=== PATIENT | female | born 1930 | race Two or more races ===

== ENCOUNTER 2018-02-13 18:31 | Inpatient (IN) | payer MEDICARE, OTHER ==
[~2018-02-13] VITALS: Ht 152.4 cm; Wt 60.1 kg
[2018-02-13] MEDS ORDERED: ONDANSETRON HCL 4 MG/2 ML VIAL ONE (19:13)
[2018-02-13] MEDS ORDERED: HYDROmorphone HCL 2 MG/ML VL ONE (19:13)
[2018-02-13] MEDS ORDERED: HYDROmorphone HCL 2 MG/ML VL IV ONE (19:15)
[2018-02-13] MEDS ORDERED: ONDANSETRON HCL 4 MG/2 ML VIAL IV ONE (19:15)
[2018-02-13] MEDS ORDERED: SODIUM CHLORIDE 0.9% 500 ML IV ONE (19:30)
[2018-02-13 19:59] LABS: Basophils # (auto) 0 uL; Basophils % (auto) 0.5 % (0.0-2.0); Eosinophils # (auto) 0.1 uL; Hematocrit 36.3 % (36.0-46.0); Hemoglobin 12.1 g/dL (12.2-16.2); Lymphocytes # (auto) 0.5 uL; Lymphocytes % (auto) 9.2 % (10.0-50.0); Mean Corpuscular Hemoglobin 30.1 pg (28.0-32.0); Mean Corpuscular Hgb Conc. 33.4 g/dL (32.0-36.0); Mean Corpuscular Volume 90.3 fL (80.0-100.0); Monocytes # (auto) 0.3 uL; Monocytes % (auto) 6.1 % (0.0-12.0); Neutrophils # (auto) 4.8 uL; Neutrophils % (auto) 83.2 % (37.0-80.0); Platelet Count (auto) 210 10^3/uL (140-450); Red Blood Cells 4.02 10^6/uL (4.0-5.20); Red Cell Distribution Width 14.8 % (11.8-14.3); White Blood Cell 5.7 10^3/uL (4.4-10.8)
[2018-02-13 20:17] LABS: Alanine Aminotransferase 18 U/L (13-56); Albumin 3.3 g/dL (3.4-5.0); Anion Gap 7 (5-15); Aspartate Aminotransferase 21 U/L (15-37); BUN/Creatinine Ratio 23.3; Blood Urea Nitrogen 24 mg/dL (7-18); Calcium 8.3 mg/dL (8.5-10.1); Carbon Dioxide 24 mmol/L (21-32); Chloride 111 mmol/L (98-107); GFR African American 65 mL/min; GFR Non-African American 54 mL/min; Glucose 137 mg/dL (74-106); Magnesium 2.6 mg/dL (1.6-2.6); Potassium 4.4 mmol/L (3.5-5.1); Sodium 142 mmol/L (136-145)
[2018-02-13 20:22] LABS: Alkaline Phosphatase 69 U/L (45-117); Bilirubin, Total 0.6 mg/dL (0.2-1.0); Total Protein 6.6 g/dL (6.4-8.2)
[2018-02-13 21:20] LABS: Urine Bacteria NONE SEEN /hpf (None Seen); Urine Blood Negative /uL (Negative); Urine Mucus FEW (None Seen); Urine Specific Gravity 1.024 (1.001-1.035); Urine WBC 1 /hpf (0 - 5)
[2018-02-13] MEDS ORDERED: TEMAZEPAM 15 MG CAP PO PRN (22:45)
[2018-02-13] MEDS ORDERED: ACETAMINOPHEN 500 MG TAB PO PRN (22:45)
[2018-02-13] MEDS ORDERED: MEPERIDINE HCL (25 MG/ML) 1ML VIAL IV ONE (22:45)
[2018-02-13] MEDS ORDERED: DOCUSATE SOD 100 MG CAP PO PRN (22:45)
[2018-02-14] MEDS ORDERED: SODIUM CHLORIDE 0.9% 1,000 ML IV SCH (03:00)
[2018-02-14 04:00] VITALS: BP 156/77
[2018-02-14 04:33] VITALS: BP 156/77
[2018-02-14 06:14] LABS: Basophils # (auto) 0 uL; Basophils % (auto) 0.2 % (0.0-2.0); Eosinophils # (auto) 0 uL; Hematocrit 32.7 % (36.0-46.0); Hemoglobin 10.8 g/dL (12.2-16.2); Lymphocytes # (auto) 0.4 uL; Lymphocytes % (auto) 6.1 % (10.0-50.0); Mean Corpuscular Hemoglobin 30.1 pg (28.0-32.0); Mean Corpuscular Volume 91.1 fL (80.0-100.0); Monocytes # (auto) 0.5 uL; Monocytes % (auto) 7.7 % (0.0-12.0); Platelet Count (auto) 177 10^3/uL (140-450); Red Blood Cells 3.59 10^6/uL (4.0-5.20); Red Cell Distribution Width 14.6 % (11.8-14.3); White Blood Cell 5.8 10^3/uL (4.4-10.8)
[2018-02-14 06:41] LABS: BUN/Creatinine Ratio 23.1; Calcium 8.5 mg/dL (8.5-10.1); Potassium 4.4 mmol/L (3.5-5.1)
[2018-02-14 08:10] VITALS: BP 184/79
[2018-02-14] MEDS: HYDROmorphone HCL 2 MG/ML VL IV PRN ×2 (08:15→18:21)
[2018-02-14] MEDS: ONDANSETRON HCL 4 MG/2 ML VIAL IV PRN (08:15)
[2018-02-14] MEDS ORDERED: CYAN1TAB14 PO ×2 (09:17→09:21)
[2018-02-14] MEDS ORDERED: MULTTAB5 PO (09:20)
[2018-02-14] MEDS ORDERED: KRIL300C2 PO (09:23)
[2018-02-14] MEDS ORDERED: CHOL20007 PO (09:24)
[2018-02-14] MEDS ORDERED: hydrALAZINE HCL 20 MG/ML VL IV PRN (11:00)
[2018-02-14 11:12] LABS: INR 1.07 (0.9-1.15); Prothrombin Time 11.4 sec (9.27-12.13)
[2018-02-14] MEDS ORDERED: amLODIPine BESYLATE 5 MG TAB PO ONE (11:15)
[2018-02-14] MEDS ORDERED: D5W/SOD CHL 0.45% 1,000 ML IV SCH (11:15)
[2018-02-14] MEDS ORDERED: TRANEXAMIC ACID 0 ML ONE (12:23)
[2018-02-14] MEDS ORDERED: TETRACAINE 1% INJ 2 ML VIAL IJ ONE (12:23)
[2018-02-14] MEDS ORDERED: MEPERIDINE HCL (50 MG/ML) 1 ML VIAL ONE (12:24)
[2018-02-14] MEDS ORDERED: fentaNYL CITRATE 100 MCG/2 ML VL ONE (12:24)
[2018-02-14] MEDS ORDERED: MIDAZOLAM HCL 1MG/1ML-2 ML VIAL ONE (12:24)
[2018-02-14] MEDS ORDERED: ceFAZolin 1GM/50ML 50 ML IV ONE (12:33)
[2018-02-14] MEDS ORDERED: MORPHINE SULFATE 4 MG/ML SYR/VIAL IV PRN (13:15)
[2018-02-14] MEDS ORDERED: ONDANSETRON HCL 4 MG/2 ML VIAL IV ONE (13:15)
[2018-02-14] MEDS ORDERED: LABETALOL HCL 5 MG/ML 4ML SYRINGE IV PRN (13:15)
[2018-02-14] MEDS ORDERED: ePHEDrine SULFATE 50 MG/ML AMP IV PRN (13:15)
[2018-02-14] MEDS ORDERED: MIDAZOLAM HCL 1MG/1ML-2 ML VIAL IV PRN (13:15)
[2018-02-14] MEDS ORDERED: KETOROLAC TROMETH 30 MG/ML 1ML VIAL IV ONE (13:15)
[2018-02-14] MEDS ORDERED: PROPOFOL 10 MG/ML 20 ML IV ONE (13:21)
[2018-02-14] MEDS ORDERED: DEXAMETHASONE SOD PHOS 10MG/1ML VIAL INJ ONE (13:21)
[2018-02-14] MEDS ORDERED: MORPHINE SULFATE 4 MG/ML SYR/VIAL IV ONE (14:00)
[2018-02-14] MEDS: LACTATED RINGER'S 1,000 ML IV SCH (14:18)
[2018-02-14] MEDS ORDERED: LIDOCAINE W/ EPINEPHRINE 1% 20ML VIAL ONE (15:10)
[2018-02-14] MEDS ORDERED: LIDOCAINE W/ EPINEPHRINE 1 % INJ 30ML ONE (15:11)
[2018-02-14 17:00] VITALS: BP 130/63
[2018-02-14] MEDS: ceFAZolin 1GM/50ML 50 ML IV SCH (18:08)
[2018-02-14] MEDS: SODIUM CHLOR 0.9% PF (SALINE LOCK) 10ML VIAL/SYR IV SCH (23:14)
[2018-02-15] MEDS: LACTATED RINGER'S 1,000 ML IV SCH (00:18)
[2018-02-15] MEDS: ceFAZolin 1GM/50ML 50 ML IV SCH ×2 (00:41→05:33)
[2018-02-15 01:50] VITALS: BP 122/82
[2018-02-15] MEDS: ONDANSETRON HCL 4 MG/2 ML VIAL IV PRN ×3 (03:35→16:19)
[2018-02-15] MEDS: HYDROmorphone HCL 2 MG/ML VL IV PRN (03:35)
[2018-02-15] MEDS: SODIUM CHLOR 0.9% PF (SALINE LOCK) 10ML VIAL/SYR IV SCH ×3 (05:33→22:03)
[2018-02-15 05:45] VITALS: BP 114/51
[2018-02-15 08:42] LABS: Albumin 2.5 g/dL (3.4-5.0); BUN/Creatinine Ratio 20.3; Bilirubin, Total 0.4 mg/dL (0.2-1.0); Calcium 8.1 mg/dL (8.5-10.1); Potassium 4.7 mmol/L (3.5-5.1); Total Protein 5.4 g/dL (6.4-8.2)
[2018-02-15 08:47] LABS: Hematocrit 22.5 % (36.0-46.0); Hemoglobin 7.5 g/dL (12.2-16.2)
[2018-02-15] MEDS ORDERED: SODIUM CHLORIDE 0.9% 1,000 ML IV ONE (09:00)
[2018-02-15] MEDS ORDERED: HYDROcodone-ACET 5/325MG TAB PO PRN (09:15)
[2018-02-15] MEDS ORDERED: amLODIPine BESYLATE 5 MG TAB PO SCH (10:00)
[2018-02-15] MEDS: ENOXAPARIN SOD 40 MG/0.4 ML SYRINGE SC SCH (10:05)
[2018-02-15] MEDS: HYDROcodone-ACET 5/325MG TAB PO PRN ×2 (10:13→16:19)
[2018-02-15] MEDS: SENNA 8.6 MG TAB PO SCH (22:04)
[2018-02-16] VITALS (11 sets, daily range): BP systolic 120–182; BP diastolic 49–80
[2018-02-16] MEDS: SODIUM CHLOR 0.9% PF (SALINE LOCK) 10ML VIAL/SYR IV SCH ×2 (05:31→15:14)
[2018-02-16 07:13] LABS: Basophils # (auto) 0 uL; Basophils % (auto) 0.3 % (0.0-2.0); Eosinophils # (auto) 0 uL; Eosinophils % (auto) 0.4 % (0.0-7.0)
[2018-02-16 07:15] LABS: Hematocrit 20.4 % (36.0-46.0); Lymphocytes # (auto) 0.5 uL; Lymphocytes % (auto) 9.8 % (10.0-50.0); Mean Corpuscular Hemoglobin 30.4 pg (28.0-32.0); Mean Corpuscular Hgb Conc. 33.5 g/dL (32.0-36.0); Mean Corpuscular Volume 90.6 fL (80.0-100.0); Monocytes # (auto) 0.6 uL; Monocytes % (auto) 10.2 % (0.0-12.0); Neutrophils # (auto) 4.4 uL; Neutrophils % (auto) 79.3 % (37.0-80.0); Platelet Count (auto) 141 10^3/uL (140-450); Red Blood Cells 2.25 10^6/uL (4.0-5.20); Red Cell Distribution Width 14.5 % (11.8-14.3); White Blood Cell 5.5 10^3/uL (4.4-10.8)
[2018-02-16 07:23] LABS: BUN/Creatinine Ratio 21.6
[2018-02-16 07:50] LABS: Hemoglobin 6.8 g/dL (12.2-16.2)
[2018-02-16] MEDS: ENOXAPARIN SOD 40 MG/0.4 ML SYRINGE SC SCH (09:36)
[2018-02-16] MEDS: HYDROcodone-ACET 5/325MG TAB PO PRN ×3 (09:37→21:14)
[2018-02-16] MEDS: SENNA 8.6 MG TAB PO SCH (22:00)
[2018-02-17] MEDS: SODIUM CHLOR 0.9% PF (SALINE LOCK) 10ML VIAL/SYR IV SCH ×3 (00:10→14:37)
[2018-02-17] MEDS: HYDROcodone-ACET 5/325MG TAB PO PRN ×3 (03:37→17:06)
[2018-02-17 05:21] VITALS: BP 160/76
[2018-02-17 06:01] LABS: Basophils # (auto) 0 uL; Basophils % (auto) 0.4 % (0.0-2.0); Eosinophils # (auto) 0 uL; Hematocrit 29.7 % (36.0-46.0); Lymphocytes # (auto) 0.5 uL; Lymphocytes % (auto) 12.1 % (10.0-50.0); Mean Corpuscular Hemoglobin 29.5 pg (28.0-32.0); Mean Corpuscular Hgb Conc. 33.7 g/dL (32.0-36.0); Mean Corpuscular Volume 87.6 fL (80.0-100.0); Monocytes # (auto) 0.4 uL; Monocytes % (auto) 10.1 % (0.0-12.0); Neutrophils # (auto) 3.2 uL; Neutrophils % (auto) 76.4 % (37.0-80.0); Nucleated Red Blood Cells % 0.3 %; Platelet Count (auto) 125 10^3/uL (140-450); Red Blood Cells 3.39 10^6/uL (4.0-5.20); Red Cell Distribution Width 15.9 % (11.8-14.3); White Blood Cell 4.2 10^3/uL (4.4-10.8)
[2018-02-17 06:23] LABS: Potassium 4.2 mmol/L (3.5-5.1)
[2018-02-17 06:29] LABS: BUN/Creatinine Ratio 18.1
[2018-02-17 09:00] VITALS: BP 128/66
[2018-02-17] MEDS: ENOXAPARIN SOD 40 MG/0.4 ML SYRINGE SC SCH (09:46)
[2018-02-17] MEDS: LISINOPRIL 20 MG TAB PO SCH ×2 (09:48→09:52)
[2018-02-17 17:15] VITALS: BP 131/71
== END 2018-02-17 18:00 | DRG 480 ==
LOC: EDBD 18:31 → ER 18:31 → TELE 18:32 → TELE-WESTW 23:51
PROVIDERS: ADMIT Nurse Practitioner Family; ATTEND Internal Medicine
PROC: 0QS636Z Reposition Right Upper Femur with Intramedullary Internal Fixation Device, Percutaneous Approach (ICD-10-PCS; principal; 2018-02-14 12:25)
PROC: 30233N1 Transfusion of Nonautologous Red Blood Cells into Peripheral Vein, Percutaneous Approach (ICD-10-PCS; 2018-02-16)
DX: S72.141A Displaced intertrochanteric fracture of right femur, initial encounter for closed fracture (principal); N17.0 Acute kidney failure with tubular necrosis; E44.1 Mild protein-calorie malnutrition; D62 Acute posthemorrhagic anemia; I12.9 Hypertensive chronic kidney disease with stage 1 through stage 4 chronic kidney disease, or unspecified chronic kidney disease; M81.0 Age-related osteoporosis without current pathological fracture; N18.2 Chronic kidney disease, stage 2 (mild); W18.39XA Other fall on same level, initial encounter; M19.90 Unspecified osteoarthritis, unspecified site; I25.10 Atherosclerotic heart disease of native coronary artery without angina pectoris; Y93.89 Activity, other specified; Y92.89 Other specified places as the place of occurrence of the external cause; Z68.25 Body mass index [BMI] 25.0-25.9, adult
CPT/HCPCS: 36415; 70450; 71045; 73502; 76000; 80048; 80053; 81001; 83735; 84484; 85014; 85018; 85025; 85610; 86850; 86900; 86901; 86920; 93005; 93306; 96361; 96374; 96375; 97110; 97116; 97163; 97530; A4565; C1713; C1769; J0690; J1100; J2250; J2405; J2704

== ENCOUNTER 2019-07-14 17:59 | Emergency (ER) | payer MEDICARE, OTHER ==
[~2019-07-14] VITALS: Ht 157.5 cm; Wt 54.4 kg
[~2019-07-14 17:59] MED LIST: CHOL20007 PO; CYAN1TAB14 PO; KRIL300C2 PO; MULTTAB5 PO
[2019-07-14 19:30] VITALS: BP 175/80
[2019-07-14] MEDS ORDERED: LISINOPRIL 20 MG TAB PO ONE (19:45)
[2019-07-14] MEDS ORDERED: traMADol HCL 50 MG TAB PO ONE (19:45)
== END 2019-07-14 20:10 | disposition home or self-care (01) ==
LOC: EDUNIT# 17:59 → EDBD 17:59 → ER 18:08 → UNDOADMIN 18:09 → TELE 18:09 → ER 20:10
DX: M25.551 Pain in right hip (principal); I10 Essential (primary) hypertension; M19.90 Unspecified osteoarthritis, unspecified site; Z88.5 Allergy status to narcotic agent
CPT/HCPCS: 93971